=== PATIENT | female | born 1970 | race African-American/Black ===

== ENCOUNTER 2017-07-19 17:08 | Emergency (ER) | payer OTHER ==
[2017-07-19 17:15] VITALS: BP 160/80; PULSE 90; RESP 16; TEMP 98.9; O2SAT 98
[2017-07-19] MEDS ORDERED: CYCL1TAB29 PO (17:38)
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
== END 2017-07-19 17:55 | disposition home or self-care (01) ==
LOC: PHEFT 17:08
DX: S39.012A Strain of muscle, fascia and tendon of lower back, initial encounter (principal); V89.2XXA Person injured in unspecified motor-vehicle accident, traffic, initial encounter
CPT/HCPCS: 99283